=== PATIENT | female | born 1980 | race Caucasian/White ===

== ENCOUNTER → 2018-09-17 | Emergency (ER) | payer SELFPAY ==
[~2018-09-17] MED LIST: BACITRACIN 15 GM TUBE TOPICAL OINTMENT TP ONE; DIPHTH,PERTUSS(ACELL),TET 0.5 ML DISP.SYRIN IM ONE
[2018-09-17 19:10] VITALS: BP 106/64; PULSE 70; TEMP 98; BMI 36.3
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
== END | disposition left against medical advice (07) ==
LOC: JER 18:42
DX: T21.01XA Burn of unspecified degree of chest wall, initial encounter (principal); L56.8 Other specified acute skin changes due to ultraviolet radiation; Y93.89 Activity, other specified; Y92.89 Other specified places as the place of occurrence of the external cause; Y99.8 Other external cause status
CPT/HCPCS: 99281-25